=== PATIENT | female | born 1995 | race Caucasian/White ===

== ENCOUNTER 2017-05-14 01:11 | Emergency (ER) | payer BC, OTHER ==
[~2017-05-14] VITALS: Ht 154.9 cm; Wt 56.0 kg
[~2017-05-14 01:11] MED LIST: FLUO10TA PO
[2017-05-14 01:13] VITALS: BP 138/88; PULSE 96; RESP 20; TEMP 98.3; O2SAT 99
--- NOTE | 2017-05-14 01:24 | PD ---
HPI Chief Complaint: Related Problem Time Seen by Provider: 01:24 Travel History International Travel<30 days: No Contact w/Intl Traveler<30days: No Traveled to known affect area: No History of Present Illness HPI 21-year-old female came to the emergency room with history of vaginal bleeding and cramping. Patient is 7 weeks . She says this spotting started 4 days ago. She had gone to [facility] for that. They did an ultrasound and confirmed an intrauterine and she was told that the heartbeat was 111 bpm. She was diagnosed with Bartholin's cyst at that time. However the bleeding increased in intensity and now the cramping is severe. Patient says that today she passed some large clots. Patient is A0. She seems uncomfortable. She is otherwise a healthy person. [facility] Past Medical History Narrative Medical List of her past medical, surgical, social and family history was reviewed from the nursing note. ADHD: No Depression: Yes Cancer: No Cardiovascular Problems: No Diabetes: No Diminished Hearing: No Psychiatric: No Immunizations Current: Yes Migraines: Yes (has not taken any medication for them for a year) Seizures: No Thyroid Disease: No Ulcer: No ?: LMP: 7 WEEKS Past Surgical History Ear Surgery: Yes (reconstrucion of one ear lobe) Social History Alcohol Use: No (denies) Tobacco Use: No Substance Use: No (denies) Allergies-Medications (Allergen,Severity, Reaction): Coded Allergies: No Known Allergies (Verified , 05/14/17) Comments No known drug allergies. Reported Meds & Prescriptions Reported Meds & Active Scripts Active Reported Prozac (Fluoxetine HCl) 10 Mg Tab 10 Mg PO DAILY Narrative Medication List of her home medications reviewed from the nursing note. Review of Systems Except as stated in HPI: all other systems reviewed are Neg Physical Exam Narrative GENERAL: Awake, alert, moderate distress SKIN: Focused skin assessment warm/dry. HEAD: Atraumatic. Normocephalic. EYES: Pupils equal and round. No scleral icterus. No injection or drainage. ENT: No nasal bleeding or discharge. Mucous membranes pink and moist. NECK: Trachea midline. No JVD. CARDIOVASCULAR: Regular rate and rhythm. No murmur appreciated. RESPIRATORY: No accessory muscle use. Clear to auscultation. Breath sounds equal bilaterally. GASTROINTESTINAL: Abdomen soft, non-tender, nondistended. Hepatic and splenic margins not palpable. MUSCULOSKELETAL: No obvious deformities. No clubbing. No cyanosis. No edema. NEUROLOGICAL: Awake and alert. No obvious cranial nerve deficits. Motor grossly within normal limits. Normal speech. PSYCHIATRIC: Appropriate mood and affect; insight and judgment normal. Data Data Last Documented VS Vital Signs Date Time Temp Pulse Resp B/P Pulse Ox O2 Delivery O2 Flow Rate FiO2 05/14/17 01:13 98.3 96 20 138/88 99 Room Air Orders Beta Hcg (Quant/Titer) (05/14/17 01:27) Complete Blood Count With Diff (05/14/17 01:27) Basic Metabolic Panel (Bmp) (05/14/17 01:27) Type And Screen (05/14/17 01:27) Oxycodone-Acetamin 5-325 Mg (Percocet (05/14/17 01:30) Ed Poc Ultrasound (05/14/17 01:27) Ondansetron Inj (Zofran Inj) (05/14/17 02:45) Ondansetron Inj (Zofran Inj) (05/14/17 02:42) Labs Laboratory Tests Test 05/14/17 01:50 White Blood Count 10.9 TH/MM3 Red Blood Count 4.87 MIL/MM3 Hemoglobin 14.5 GM/DL Hematocrit 43.0 % Mean Corpuscular Volume 88.3 FL Mean Corpuscular Hemoglobin 29.7 PG Mean Corpuscular Hemoglobin 33.6 % Concent Red Cell Distribution Width 12.9 % Platelet Count 233 TH/MM3 Mean Platelet Volume 8.7 FL Neutrophils (%) (Auto) 54.8 % Lymphocytes (%) (Auto) 35.6 % Monocytes (%) (Auto) 8.4 % Eosinophils (%) (Auto) 1.0 % Basophils (%) (Auto) 0.2 % Neutrophils # (Auto) 6.0 TH/MM3 Lymphocytes # (Auto) 3.9 TH/MM3 Monocytes # (Auto) 0.9 TH/MM3 Eosinophils # (Auto) 0.1 TH/MM3 Basophils # (Auto) 0.0 TH/MM3 CBC Comment DIFF FINAL Differential Comment Sodium Level 141 MEQ/L Potassium Level 3.8 MEQ/L Chloride Level 107 MEQ/L Carbon Dioxide Level 23.9 MEQ/L Anion Gap 10 MEQ/L Blood Urea Nitrogen 11 MG/DL Creatinine 0.81 MG/DL Estimat Glomerular Filtration 89 ML/MIN Rate Random Glucose 85 MG/DL Calcium Level 9.5 MG/DL Human Chorionic Gonadotropin, 4344 MIU/ML Quant Blood Type A POSITIVE Antibody Screen NEGATIVE Blood Bank Comment [facility] Medical Decision Making Medical Screen Exam Complete: Yes Emergency Medical Condition: Yes Medical Record Reviewed: Yes Differential Diagnosis Threatened , incomplete Narrative Course 2:22 AM blood test results are mostly back and they're within normal limits. Beta hCG is pending. Based on the beta-hCG I'll do a bedside ultrasound. Patient has been medicated with pain medicine. History of 1 AM I am ready to discharge this patient home at this point. Patient told me that she has an appointment with her OB tomorrow morning. She' ll follow up with them. Procedures Procedure Narrative Emergency Department Pelvic ultrasound was performed with patient consent. The curvilinear probe was used in the transverse and sagittal views within the suprapubic region revealing 0 intrauterine . Some blood clot was noted in the uterus. EKG Prior to Arrival: No Diagnosis Primary Impression: Incomplete miscarriage Referrals: Primary Care Physician Additional Instructions: Please follow-up with your HEALTH AND SAFETY DIRECTOR as per the appointment. Take Motrin/ibuprofen/ Advil for pain. No intercourse, no tampons, no douching or anything in the vagina till the bleeding stops. Med/Other Pt SpecificInfo: No Change to Meds Disposition: 01 DISCHARGE HOME Condition: Stable Kathy Cornell MD May 14, 2017 01:24
[2017-05-14] MEDS ORDERED: oxyCODONE/ACETAMINOPHEN 5 MG/325 MG TAB PO ONE (01:30)
[2017-05-14 02:07] LABS: BASOPHIL % 0.2 % (0.0-2.0); EOSINOPHIL # 0.1 TH/MM3 (0-0.4); HEMO FLAGS DIFF FINAL; LYMPH % 35.6 % (9.0-44.0); LYMPHOCYTE # 3.9 TH/MM3 (1.0-4.8); MEAN CELL VOLUME 88.3 FL (80.0-100.0); MEAN CORPUSCULAR HEMOGLOBIN 29.7 PG (27.0-34.0); MEAN CORPUSCULAR HGB CONC 33.6 % (32.0-36.0); MONO % 8.4 % (0.0-8.0); NEUT % 54.8 % (16.0-70.0); PLATELET COUNT 233 TH/MM3 (150-450); RED BLOOD COUNT 4.87 MIL/MM3 (4.00-5.30); RED CELL DISTRIBUTION WIDTH 12.9 % (11.6-17.2); WHITE BLOOD COUNT 10.9 TH/MM3 (4.0-11.0)
[2017-05-14 02:12] LABS: BICARBONATE 23.9 MEQ/L (21.0-32.0); POTASSIUM 3.8 MEQ/L (3.5-5.1)
[2017-05-14] MEDS ORDERED: ONDANSETRON HCL 4 MG/2 ML VIAL ONE (02:42)
[2017-05-14] MEDS ORDERED: ONDANSETRON HCL 4 MG/2 ML VIAL IV PUSH ONE (02:45)
== END 2017-05-14 03:15 | disposition home or self-care (01) ==
LOC: NEPE 01:11
DX: O03.4 Incomplete spontaneous abortion without complication (principal); Z3A.01 Less than 8 weeks gestation of pregnancy
CPT/HCPCS: 80048; 84702; 85025; 86850; 86900; 86901; 96374; 99284; J2405